=== PATIENT | male | born 1985 | race African-American/Black ===

== ENCOUNTER 2023-07-31 12:35 | Outpatient (CLI) | payer OTHER, SELFPAY ==
--- NOTE | ~2023-07-31 | MR_ITS ---
EXAMINATION: MR cervical spine wo con DATE: 07/31/2023 13:42 INDICATION: Chronic right shoulder pain. Right arm pain. Bilateral hand numbness. TECHNIQUE: Magnetic resonance imaging (MRI) of the cervical spine was performed without intravenous c ontrast. COMPARISON: None FINDINGS: There is kyphosis of cervical spine. Vertebral body heights are normal. There is mildly dec reased disc height at C4-C5, C5-C6, and C6-C7. The spinal cord signal intensity is normal. The follow ing disc levels are specifically discussed: C2-C3: There is a central protrusion. There is mild left uncovertebral joint osteoarthritis. There is mild bilateral facet joint osteoarthritis. There is mild left neural foraminal stenosis. There is mi ld central canal stenosis. C3-C4: There is a central protrusion. There is moderate bilateral uncovertebral joint osteoarthritis. There is mild bilateral facet joint osteoarthritis. There is moderate right and mild left neural for aminal stenosis. There is mild central canal stenosis. C4-C5: The disc is bulging. There is severe right and moderate left uncovertebral joint osteoarthriti s. There is mild bilateral facet joint osteoarthritis. There is moderate right and mild left neural f oraminal stenosis. There is mild central canal stenosis with ventral indentation of the spinal cord. C5-C6: The disc is bulging. There is moderate bilateral uncovertebral joint osteoarthritis. There is mild bilateral facet joint osteoarthritis. There is mild bilateral neural foraminal stenosis. There i s mild central canal stenosis with ventral indentation of the spinal cord. C6-C7: The disc is bulging. There is moderate bilateral uncovertebral joint osteoarthritis. There is mild bilateral facet joint osteoarthritis. There is mild bilateral neural foraminal stenosis. There i s mild central canal stenosis with ventral indentation of the spinal cord. C7-T1: The disc does not extend beyond the endplate margin. There is no uncovertebral joint osteoarth ritis. There is mild bilateral facet joint osteoarthritis. There is no neural foraminal stenosis. The re is no central canal stenosis. IMPRESSION: 1. Moderate cervical spondylosis. Reviewed, dictated and finalized at location E.
--- NOTE | ~2023-07-31 | MR_ITS ---
EXAMINATION: MR shoulder RT wo con DATE: 07/31/2023 13:42 INDICATION: Chronic right shoulder pain. TECHNIQUE: Magnetic resonance imaging (MRI) of the right shoulder was performed without intravenous c ontrast. Sequences included axial PD-weighted FS FSE, coronal oblique PD-weighted FS FSE and T2-weigh vini FS FSE, and sagittal oblique T2-weighted FS FSE and T1-weighted FSE. COMPARISON: None. FINDINGS: Coracoacromial arch: The acromion undersurface is flat in morphology (type I). There is severe acromioclavicular joint ost eoarthritis including inferiorly directed osteophytes. There is mild subacromial/subdeltoid bursitis. Rotator cuff: There is moderate supraspinatus and infraspinatus tendinopathy with shallow bursal sided fraying. Ter es minor tendon is normal. Subscapularis tendon is normal. There is no asymmetric fatty atrophy of th e rotator cuff muscle bellies. Biceps tendon and glenoid labrum: Biceps tendon is in bicipital groove. Intra-articular biceps tendon is normal. The glenoid labrum is normal. Fluid: There is no glenohumeral joint effusion. Bones/cartilage: Glenoid cartilage is normal. Humeral head cartilage is normal. IMPRESSION: 1. Moderate rotator cuff tendinopathy with shallow bursal sided fraying of supraspinatus and infraspi natus tendons. 2. Mild subacromial/subdeltoid bursitis. 3. Severe acromioclavicular joint osteoarthritis. Reviewed, dictated and finalized at location E. IMPRESSION: 1. Moderate rotator cuff tendinopathy with shallow bursal sided fraying of supr aspinatus and infraspinatus tendons. 2. Mild subacromial/subdeltoid bursitis. 3. Severe acromioclavicular joint osteoarthritis.
== END 2023-07-31 12:36 | disposition home or self-care (01) ==
PROVIDERS: PCP Nurse Practitioner; Visit Provider Nurse Practitioner
DX: M19.011 Primary osteoarthritis, right shoulder (principal); M75.51 Bursitis of right shoulder
CPT/HCPCS: 72141; 73221